=== PATIENT | male | born 2000 | race Caucasian/White ===

== ENCOUNTER 2020-01-19 01:29 | Emergency (ER) | payer MEDICAID, OTHER ==
[~2020-01-19] VITALS: Ht 180.3 cm; Wt 99.0 kg
[2020-01-19] MEDS ORDERED: ACETAMINOPHEN 500 MG TABLET PO ONE (02:00)
[2020-01-19] MEDS ORDERED: ACETAMINOPHEN 500 MG TABLET ONE (02:14)
[2020-01-19] MEDS ORDERED: SODIUM CHLORIDE 0.9% 1,000ML IVBOLUS ONE (02:30)
[2020-01-19 02:37] LABS: MICROSCOPIC NOT IND
[2020-01-19 03:26] LABS: MEAN CORPUSCULAR HEMOGLOBIN 30.1 pg (27.5-34.5); MEAN CORPUSCULAR HGB CONC 34.2 g/dL (33.2-36.2); MEAN PLATELET VOLUME 8.4 fL (7.4-10.4); PLATELET COUNT 136 x10^3/uL (130-400); RED BLOOD COUNT 5.23 x10^6/uL (4.38-5.82); RED CELL DISTRIBUTION WIDTH 12.9 % (9.4-14.8)
[2020-01-19 03:27] LABS: ALANINE AMINOTRANSFERASE 20 U/L (12-78); ALBUMIN 3.8 g/dL (3.4-5.0); ANION GAP 6 mmol/L (5-15); CALCIUM 8.5 mg/dL (8.5-10.1); CHLORIDE 108 mmol/L (98-107); CREATININE 1.11 mg/dL (0.7-1.3)
[2020-01-19 03:30] LABS: ALKALINE PHOSPHATASE 60 U/L (45-117); BILIRUBIN,TOTAL 0.4 mg/dL (0.2-1.0); TOTAL PROTEIN 7.2 g/dL (6.4-8.2)
[2020-01-19 04:04] LABS: BASOPHILS # (AUTO) 0.01 x10^3/uL (0-0.3); BASOPHILS % (AUTO) 0 % (0-1); EOSINOPHILS % (AUTO) 0 % (1-7); LYMPHOCYTES # (AUTO) 0.42 x10^3/uL (1-6.1); LYMPHOCYTES % (AUTO) 15 % (22-44); MD SCAN; MONOCYTES # (AUTO) 0.49 x10^3/uL (0-1.4); MONOCYTES % (AUTO) 18 % (2-9); NEUTROPHILS # (AUTO) 1.85 x10^3/uL (1.8-8.0); NEUTROPHILS % (AUTO) 67 % (42-75)
[2020-01-19 04:37] LABS: MONOSCREEN Negative (Negative)
[2020-01-19] MEDS ORDERED: OMNIPAQUE 350 MG/ML, 100ML BOTTLE ONE (04:51)
--- NOTE | 2020-01-19 05:00 | NUR ---
report from KENISHA rn assuming care of pt
[2020-01-19 06:00] VITALS: BP 137/78
--- NOTE | 2020-01-19 06:04 | NUR ---
Patient/Caregiver given discharge instructions and they have confirmed that they understand the instructions. Patient ambulatory with steady gait.
== END 2020-01-19 06:02 | disposition home or self-care (01) ==
LOC: ED 03:28
DX: R10.11 Right upper quadrant pain (principal); R10.31 Right lower quadrant pain; R50.9 Fever, unspecified
CPT/HCPCS: 36415; 71045; 74177; 76700; 80053; 81003; 83605; 83690; 84145; 85025; 86308; 87806; 96360; 99285; J7030; Q9967; G0475

== ENCOUNTER 2020-04-22 07:42 | Emergency (ER) | payer MEDICAID, OTHER ==
[~2020-04-22] VITALS: Ht 182.9 cm; Wt 97.4 kg
--- NOTE | 2020-04-22 08:36 | NUR ---
CXR at bedside
--- NOTE | 2020-04-22 08:44 | NUR ---
MD at bedside for COVID swab pt reports that he has been having a cough and had a small amount of bloody sputum. pt also reports that he vapes pt is in no resp. distress and is walking around the room on his cell phone
--- NOTE | 2020-04-22 08:50 | NUR ---
pt to be medicated per order. pt advised not to drive after Rx, pt verbalized understanding pt reports that he has been having cough with blood tinged sputum. pt education regarding the importance of smoking cessation. pt verbalized understanding and all questions answered. awaiting test restuls. pt updated on POC
[2020-04-22 11:00] VITALS: BP 121/87
== END 2020-04-22 11:05 | disposition home or self-care (01) ==
LOC: ED 08:54
DX: M79.10 Myalgia, unspecified site (principal); R05 Cough; R07.89 Other chest pain; R51.9 Headache, unspecified; F41.9 Anxiety disorder, unspecified; F17.210 Nicotine dependence, cigarettes, uncomplicated
CPT/HCPCS: 71045; 99283; Q0177